=== PATIENT | female | born 1980 | race Hispanic/Latino ===

== ENCOUNTER 2020-05-26 10:58 | Outpatient (CLI) | payer BC ==
[2020-05-26 12:34] LABS: Hemoglobin 12.5 g/dL (12.0-15.5); Mean Corpuscular HGB CONC 33.2 g/dL (32.0-36.0); Mean Corpuscular Hemoglobin 29.6 pg (27.0-33.0); Mean Corpuscular Volume 89.1 fl (81.6-98.3); Mean Platelet Volume 11.3 fl (7.4-10.4); Platelet Count 285 10x3/uL (150-450); RBC Distribution Width 13.2 % (11.5-14.5); Red Blood Cell (RBC) Count 4.23 10x6/uL (3.90-5.03); White Blood Cell (WBC) Count 5.4 10x3/uL (3.5-10.5)
[2020-05-26 19:02] LABS: SARS-CoV-2 PCR by NAA Not Detected (NotDetected)
== END 2020-05-26 10:59 | disposition home or self-care (01) ==
LOC: CSHLAB 10:58
PROVIDERS: ATTEND Student in an Organized Health Care Education/Training Program
DX: Z01.812 Encounter for preprocedural laboratory examination (principal); Z20.822 Contact with and (suspected) exposure to COVID-19; N39.3 Stress incontinence (female) (male)
CPT/HCPCS: 85027; 86850; 86900; 86901; 87635; U0003; U0005

== ENCOUNTER 2020-05-28 09:18 | Day surgery (SDC) | payer BC ==
[2020-05-27 13:29] VITALS: BMI 21.7
[2020-05-28] MEDS ORDERED: Lidocaine 1% MPF 2 ML VIAL ONE (09:33)
[2020-05-28] MEDS ORDERED: Gabapentin 300 MG CAP ONE (09:46)
[2020-05-28] MEDS ORDERED: Famotidine/PF 20 mg/2ml Vial ONE (09:46)
[2020-05-28] MEDS ORDERED: CeleCOXIB 100 MG CAP ONE (09:46)
[2020-05-28] MEDS ORDERED: Lidocaine 1% w/Epinephrine 1:100K 20 ML VIAL ONE (11:13)
[2020-05-28] MEDS ORDERED: PROPOFOL 20 ML ONE (11:13)
[2020-05-28] MEDS ORDERED: Fentanyl 100 MCG/2 ML VIAL ONE (11:13)
[2020-05-28] MEDS ORDERED: Lidocaine 2% PF 5 ML VIAL ONE (11:14)
[2020-05-28] MEDS ORDERED: Dexamethasone 4 mg/ml Vial ONE (11:15)
[2020-05-28] MEDS ORDERED: Midazolam HCl 2 mg/2 ml Vial ONE (11:21)
[2020-05-28] MEDS ORDERED: ePHEDrine 50 MG/ML VIAL ONE (11:53)
[2020-05-28] MEDS ORDERED: Ondansetron PF 4 MG/2 ML Vial ONE (12:00)
[2020-05-28] MEDS ORDERED: HYDROcodone/Acetaminophen 5/325 mg Tablet ONE ×2 (13:40→15:31)
== END 2020-05-28 16:15 | disposition home or self-care (01) ==
LOC: CSHSDC 09:18
PROVIDERS: ATTEND Student in an Organized Health Care Education/Training Program
PROC: 0TSD0ZZ Reposition Urethra, Open Approach (ICD-10-PCS; principal; 2020-05-28)
DX: N39.3 Stress incontinence (female) (male) (principal); N81.10 Cystocele, unspecified; M32.9 Systemic lupus erythematosus, unspecified; M17.9 Osteoarthritis of knee, unspecified; Z79.899 Other long term (current) drug therapy; Z88.0 Allergy status to penicillin; Z88.1 Allergy status to other antibiotic agents; Z88.2 Allergy status to sulfonamides; Z90.710 Acquired absence of both cervix and uterus
CPT/HCPCS: C1781; J0690; J1100; J2001; J2250; J2405; J2704; J3010; J3490; S0028